=== PATIENT | male | born 1975 | race Caucasian/White ===

== ENCOUNTER 2020-10-01 14:28 | Emergency (ER) | payer OTHER, SELFPAY ==
--- NOTE | 2020-10-01 14:39 | ED.URI ---
HPI - URI/Sore Throat General Chief Complaint: Upper Respiratory Infection Stated Complaint: +covid,cough History of Present Illness HPI Narrative: This a 45-year-old male comes in complaining of a cough that is not improved patient was diagnosed with COVID-19 on September 24. Patient states that he should be past his symptoms by now is using his inhaler and taking Singulair and states that he is taken some Mucinex but the cough is progressively gotten worse. Related Data Home Medications Medication Instructions Recorded Confirmed albuterol sulfate INHALATION 10/01/20 irbesartan mg 10/01/20 montelukast mg 10/01/20 Allergies Allergy/AdvReac Type Severity Reaction Status Date / Time No Known Allergies Allergy Verified 10/01/20 14:45 Review of Systems Review of Systems: Narrative: CONSTITUTIONAL: Denies fever, chills, or sweats. EYES: Denies visual changes, redness, or discharge. ENT: Reports rhinorrhea, congestion, sore throat, or otalgia. CARDIOVASCULAR:Denies chest pain, palpitations, or edema. RESPIRATORY: Denies cough or dyspnea. GASTROINTESTINAL: Denies abdominal pain, nausea, vomiting, or diarrhea. GENITOURINARY: Denies dysuria or hematuria. SKIN:[Denies rash or itching. MUSCULOSKELETAL:Denies back pain, joint pain, or myalgia. NEUROLOGIC: Denies headache, numbness, or weakness. PSYCHIATRIC:Denies anxiety or depression PMFSH Comments At time as signature, I have reviewed and agree with nursing past medical, social, surgical and family history. Please see nursing chart for further information. There is no relevant family history pertinent to the presenting complaint. Exam Narrative: Exam Narrative: GENERAL:Well-appearing, well-nourished, and in no acute distress. HEAD:Normocephalic, atraumatic. EYES: PERRLA and EOMI. ENT: Nares clear, no rhinorrhea or epistaxis. Mucous membranes moist. NECK: Supple. CHEST: Clear to auscultation. No respiratory distress. Bronchial cough noted denies shortness of breath although uses inhaler 5-6 times a day patient states he uses his inhaler that many times when he is not sick HEART: Regular rate and rhythm. . Normal peripheral pulses. ABDOMEN: Soft, nontender, nondistended, normal active bowel sounds. EXTREMITIES: Normal range of motion. No edema. SKIN: Warm, dry, no rash. NEURO: No focal deficits. Alert and oriented x3. 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 Recommend antihistamine such as Benadryl at night time and Claritin/Zyrtec/Lisa during the day Also, recommend symptomatic treatment includes: rest, fluids, and increase humidity of the air at home. Recommend Acetaminophen or nonsteroidal anti-inflammatory agents (NSAIDs) as directed in the bottle to reduce fever and/pain/headache. Avoid smoking/second-hand smoke. Limit visits to areas with large crowds. Please schedule a follow-up visit with your personal physician for further evaluation and treatment within 3-5days. Including recheck and discussion of your blood pressure. If your symptoms persist, change or worsen significantly before you can contact your personal physician then please, without delay, go to the emergency department for further evaluation Incentive spirometer given Prescriptions: New methylprednisolone [Medrol (Bhanu)] 4 mg tablets,dose pack See Rx Instructions .ROUTE .COMPLEX Qty: 21 RF: 0 benzonatate [Tessalon Perles] 100 mg ca
[2020-10-01 14:47] VITALS: BP 140/71; PULSE 90; RESP 20; TEMP 37.5; O2SAT 99
== END 2020-10-01 15:01 | disposition home or self-care (01) ==
PROVIDERS: Emergency Provider Nurse Practitioner Family; PCP Internal Medicine
DX: U07.1 COVID-19 (principal); J06.9 Acute upper respiratory infection, unspecified
CPT/HCPCS: 99203; G0463

== ENCOUNTER 2022-02-22 16:56 | Emergency (ER) | payer OTHER, SELFPAY ==
[2022-02-22 17:15] VITALS: BP 127/73; PULSE 78; RESP 18; TEMP 37.2; O2SAT 100
[2022-02-22 17:25] VITALS: BP 127/73; PULSE 78; RESP 18; TEMP 37.2; O2SAT 100
--- NOTE | 2022-02-22 18:25 | ED.URI ---
HPI - URI/Sore Throat General Chief Complaint: Upper Respiratory Infection Stated Complaint: chest and head congestion Time Seen by Provider: 02/22/22 18:25 Source: patient and RN notes reviewed Mode of arrival: ambulatory Limitations: no limitations History of Present Illness HPI Narrative: 46 y/o male presented for c/o cough, sore throat, sinus congestion and drainage. Reports productive cough in the morning and chest tightness with cough. Onset 02/05 Has taken amox and steroids since onset. Endorses year-round sinus congestion but worse the last week. Taking Flonase and montelukast as directed. Denies sob, wheezing, fever. Hx asthma, using inhaler as needed with improvement in chest congestion. Not vaccinated for covid/flu. MD elicited complaint: cough Related Data Home Medications Medication Instructions Recorded Confirmed albuterol sulfate 90 mcg/actuation See Rx Instructions .Route 02/22/22 02/22/22 aerosol inhaler .COMPLEX PRN sob fluticasone propionate 250 1 inh inhalation DAILY 02/22/22 02/22/22 mcg/actuation blister powder for inhalation (Flovent Diskus) irbesartan 300 mg tablet 300 mg PO DAILY 02/22/22 02/22/22 montelukast 10 mg tablet 10 mg PO DAILY 02/22/22 02/22/22 Allergies Allergy/AdvReac Type Severity Reaction Status Date / Time No Known Allergies Allergy Verified 02/22/22 17:25 Review of Systems Review of Systems: CONSTITUTIONAL: Endorses malaise, chills, sweats, fever EYES: Denies visual changes, redness, or discharge ENT: Reports rhinorrhea, congestion, sinus pain, otalgia, sore throat CARDIOVASCULAR: Denies chest pain, palpitations, edema RESPIRATORY: Reports cough, post nasal drainage. Denies dyspnea GASTROINTESTINAL: Denies abdominal pain, nausea, vomiting, diarrhea SKIN: Denies rash or itching MUSCULOSKELETAL: Endorses myalgia NEUROLOGIC: Denies headache Exam Narrative: GENERAL: Ill-appearing, nontoxic EYES: PERRLA, conjunctivae clear ENT: Mucous membranes moist. nasal congestion. TMs pearly grigsby with dull light reflex bilaterally; no tragal tenderness. Oropharynx erythematous without lesions or exudate, no drooling, no hoarseness, no trismus, uvula midline. NECK: Supple. No lymphadenopathy CHEST: Clear to auscultation, breath sounds equal. No wheezing, rhonchi, rales, or stridor. No respiratory distress, speaks in full sentences. HEART: Regular rate and rhythm. No murmur heard. SKIN: Warm, dry, no rash. NEURO: Alert and oriented x3. PSYCH: Normal mood and affect Course Course Emergency Course: Patient is aware of diagnosis, understands and agrees to treatment plan. Anticipatory guidance given. Patient agrees to follow-up as directed and is aware of reasons to seek care at the emergency department. Portions of this record may have been created with voice recognition software Level of Care: Express Care Visit Vital Signs Vital signs: Vital Signs Temperature 99.0 F 02/22/22 17:15 Pulse Rate 78 02/22/22 17:15 Respiratory Rate 18 02/22/22 17:15 Blood Pressure 127/73 02/22/22 17:15 Pulse Oximetry 100 02/22/22 17:15 Oxygen Delivery Room Air 02/22/22 17:15 Temperature 99.0 F 02/22/22 17:25 Pulse Rate 78 02/22/22 17:25 Respiratory Rate 18 02/22/22 17:25 Blood Pressure 127/73 02/22/22 17:25 Pulse Oximetry 100 02/22/22 17:25 Oxygen Delivery Room Air 02/22/22 17:25 reviewed MDM - URI/Sore Throat MDM Narrative Medical decision making narrative: patient has completed a course of amoxicillin and steroid with only temporary improvement. Patient is compliant with antihistamines and steroids nasal spray. Will attempt a different antibiotic and advised close follow-up with PCP and possible ENT evaluation. Advised supportive measures and signs/symptoms to go to the ER. Pt is appropriate for outpt treatment and f/u. Differential Diagnosis Differential diagnosis: Likely upper respiratory infection, sinusitis and viral infection Dischar
== END 2022-02-22 18:40 | disposition home or self-care (01) ==
PROVIDERS: Emergency Provider Nurse Practitioner Family; PCP Internal Medicine
DX: J06.9 Acute upper respiratory infection, unspecified (principal); J45.909 Unspecified asthma, uncomplicated
CPT/HCPCS: 99213; G0463

== ENCOUNTER 2022-03-21 15:50 | Emergency (ER) | payer OTHER, SELFPAY ==
[2022-03-21 15:58] VITALS: BP 140/86; PULSE 93; RESP 18; TEMP 37.7; O2SAT 99
--- NOTE | 2022-03-21 17:11 | ED.URI ---
HPI - URI/Sore Throat General Chief Complaint: Upper Respiratory Infection Stated Complaint: Chest Congestion/Sinus Congestioin Time Seen by Provider: 03/21/22 17:11 Source: patient and RN notes reviewed Mode of arrival: ambulatory Limitations: no limitations History of Present Illness HPI Narrative: 46 y/o male presented for c/o cough, sinus congestion and drainage. Worse for the last 4 days. Patient reports URI symptoms since 02/05, and has taken amox doxy and steroids since onset. Was seen at clinic 02/22 for the same. Endorses year-round sinus congestion and allergies but worse the last week. Taking Flonase and montelukast as directed. Denies sob, wheezing, fever. Hx asthma, using inhaler as needed for chest congestion. Not vaccinated for covid/flu. MD elicited complaint: cough Related Data Home Medications Medication Instructions Recorded Confirmed albuterol sulfate 90 mcg/actuation See Rx Instructions .Route 02/22/22 03/21/22 aerosol inhaler .COMPLEX PRN sob fluticasone propionate 250 1 inh inhalation DAILY 02/22/22 03/21/22 mcg/actuation blister powder for inhalation (Flovent Diskus) irbesartan 300 mg tablet 300 mg PO DAILY 02/22/22 03/21/22 montelukast 10 mg tablet 10 mg PO DAILY 02/22/22 03/21/22 Allergies Allergy/AdvReac Type Severity Reaction Status Date / Time No Known Allergies Allergy Verified 03/21/22 16:23 Review of Systems Review of Systems: ROS per HPI Exam Narrative: GENERAL: well-appearing, nontoxic EYES: PERRLA, conjunctivae clear ENT: Mucous membranes moist. TMs pearly grigsby with dull light reflex bilaterally; no tragal tenderness. Oropharynx erythematous No tripod positioning, muffled voice, soft palate or pharyngeal wall bulging NECK: Supple. No lymphadenopathy CHEST: Clear to auscultation, breath sounds equal. HEART: Regular rate and rhythm. No murmur heard. SKIN: Warm, dry, no rash. Course Course Emergency Course: Patient is aware of diagnosis, understands and agrees to treatment plan. Anticipatory guidance given. Patient agrees to follow-up as directed and is aware of reasons to seek care at the emergency department. Portions of this record may have been created with voice recognition software Level of Care: Express Care Visit Vital Signs Vital signs: Vital Signs Temperature 99.9 F H 12/14/22 15:58 Pulse Rate 93 03/21/22 15:58 Respiratory Rate 18 03/21/22 15:58 Blood Pressure 140/86 03/21/22 15:58 Pulse Oximetry 99 03/21/22 15:58 Oxygen Delivery Room Air 03/21/22 15:58 Temperature 99.9 F H 03/21/22 15:58 Pulse Rate 93 03/21/22 15:58 Respiratory Rate 18 03/21/22 15:58 Blood Pressure 140/86 03/21/22 15:58 Pulse Oximetry 99 03/21/22 15:58 Oxygen Delivery Room Air 03/21/22 15:58 reviewed MDM - URI/Sore Throat MDM Narrative Medical decision making narrative: Advised supportive measures and signs/symptoms to go to the ER. Pt is appropriate for outpt treatment and f/u. Differential Diagnosis Differential diagnosis: Likely upper respiratory infection, sinusitis and viral infection Discharge Plan Discharge Clinical Impression: Upper respiratory infection Patient Disposition: Home, Self-Care Condition: Stable Instructions: Antibiotic Form, Rhinosinusitis (ED) Additional Instructions: Continue Flonase spray and Zyrtec (or Claritin/Lisa) consider Neti Pot, Afrin spray for 3 days max Tylenol 1000mg every 8 hours as needed for pain Symptomatic treatment includes: rest, fluids, and increase humidity of the air at home. Follow up with your primary care provider in 1 week. Go to the ER for worsening symptoms or concerns. Prescriptions: New levofloxacin 750 mg tablet 750 mg PO DAILY Qty: 7 0RF No Action montelukast 10 mg tablet 10 mg PO DAILY irbesartan 300 mg tablet 300 mg PO DAILY albuterol sulfate 90 mcg/actuation HFA aerosol inhaler See Rx Instructions .ROUTE .COMPLEX
== END 2022-03-21 17:36 | disposition home or self-care (01) ==
PROVIDERS: Emergency Provider Nurse Practitioner Family; PCP Internal Medicine
DX: J06.9 Acute upper respiratory infection, unspecified (principal)
CPT/HCPCS: 99213; G0463

== ENCOUNTER 2022-03-28 08:49 | Emergency (ER) | payer OTHER, SELFPAY ==
[2022-03-28 09:40] VITALS: BP 133/81; PULSE 75; RESP 18; TEMP 36.9; O2SAT 100
--- NOTE | 2022-03-28 09:53 | ED.URI ---
HPI - URI/Sore Throat General Chief Complaint: Upper Respiratory Infection Stated Complaint: Chest Congestion/Cough Time Seen by Provider: 03/28/22 09:54 Source: patient and RN notes reviewed Mode of arrival: ambulatory Limitations: no limitations History of Present Illness HPI Narrative: 46-year-old male presented for complaint of sinus pressure and congestion. Patient was seen at [facility] one week ago for the same plus a cough; he reports feeling better but is concerned the symptoms will worsen. Patient reports URI symptoms since? 02/05, and has taken amox doxy, levaquin and steroids since onset. Taking Flonase and montelukast as directed. Was seen at clinic 02/22 for the same. Endorses year-round sinus congestion and allergies . Denies sob, wheezing, fever. Hx asthma, using inhaler as needed for? chest congestion. Not vaccinated for covid/flu. Scheduled with PCP 04/11/22 MD elicited complaint: cough Related Data Home Medications Medication Instructions Recorded Confirmed albuterol sulfate 90 mcg/actuation See Rx Instructions .Route 02/22/22 03/28/22 aerosol inhaler .COMPLEX PRN sob fluticasone propionate 250 1 inh inhalation DAILY 02/22/22 03/28/22 mcg/actuation blister powder for inhalation (Flovent Diskus) irbesartan 300 mg tablet 300 mg PO DAILY 02/22/22 03/28/22 montelukast 10 mg tablet 10 mg PO DAILY 02/22/22 03/28/22 Allergies Allergy/AdvReac Type Severity Reaction Status Date / Time No Known Allergies Allergy Verified 03/28/22 09:46 Review of Systems Review of Systems: ROS per HPI Exam Narrative: GENERAL: well-appearing EYES: PERRLA, conjunctivae clear ENT: Mucous membranes moist. TM pearly grigsby with dull light reflex bilaterally; no tragal tenderness. NECK: Supple. No lymphadenopathy CHEST: Clear to auscultation, breath sounds equal. No wheezing, rhonchi, rales, or stridor. No respiratory distress, speaks in full sentences. HEART: Regular rate and rhythm. No murmur heard. SKIN: Warm, dry, no rash. NEURO: Alert and oriented x3. PSYCH: Normal mood and affect Course Course Emergency Course: Patient is aware of diagnosis, understands and agrees to treatment plan. Anticipatory guidance given. Patient agrees to follow-up as directed and is aware of reasons to seek care at the emergency department. Portions of this record may have been created with voice recognition software Level of Care: Express Care Visit Vital Signs Vital signs: Vital Signs Temperature 98.4 F 03/28/22 09:40 Pulse Rate 75 03/28/22 09:40 Respiratory Rate 18 03/28/22 09:40 Blood Pressure 133/81 03/28/22 09:40 Pulse Oximetry 100 03/28/22 09:40 Oxygen Delivery Room Air 03/28/22 09:40 Temperature 98.4 F 03/28/22 09:40 Pulse Rate 75 03/28/22 09:40 Respiratory Rate 18 03/28/22 09:40 Blood Pressure 133/81 03/28/22 09:40 Pulse Oximetry 100 03/28/22 09:40 Oxygen Delivery Room Air 03/28/22 09:40 reviewed MDM - URI/Sore Throat MDM Narrative Medical decision making narrative: Due to lack of resources, unable to test for influenza or perform chest x-ray at this time. Patient verbalizes understanding. he states he is not as concerned about the cough, states it is improving. Advised supportive measures and signs and symptoms to go to the ER. Patient is appropriate for outpatient treatment and follow-up. Differential Diagnosis Differential diagnosis: Likely upper respiratory infection, otitis media, sinusitis and viral infection Discharge Plan Discharge Clinical Impression: Upper respiratory infection Patient Disposition: Home, Self-Care Condition: Stable Instructions: Rhinosinusitis (ED) Additional Instructions: Recommend Afrin spray as directed for 3 days max, continue Zyrtec (or Claritin/Lisa) over the counter Cough syrup - Coricidin HBP as needed for cough; may cause drowsiness Tylenol 1000mg every 8 hours as needed for pain Symptomatic treatment includes
== END 2022-03-28 10:09 | disposition home or self-care (01) ==
PROVIDERS: Emergency Provider Nurse Practitioner Family; PCP Internal Medicine
DX: J06.9 Acute upper respiratory infection, unspecified (principal)
CPT/HCPCS: 99213; G0463

== ENCOUNTER 2024-03-27 11:46 | Emergency (ER) | payer OTHER, SELFPAY ==
--- NOTE | ~2024-03-27 | XR_ITS ---
Clinical Indication: Cough, fever PA and lateral views of the chest: Comparison: None Findings: There is left perihilar consolidation. Right lung clear. Cardiomediastinal silhouette is w ithin normal limits. Bones and soft tissues are unremarkable. Impression: Left perihilar consolidation is compatible with pneumonia. Follow-up to radiographic resolution is ad vised. Reviewed, dictated and finalized at location . R [employer] Impression: Left perihilar consolidation is compatible with pneumonia. Follow-up to radiogr aphic resolution is advised.
[2024-03-27 11:52] VITALS: BP 152/83; PULSE 97; RESP 16; TEMP 37.9; O2SAT 99
--- NOTE | 2024-03-27 12:17 | ED_ITS ---
HPI - URI/Sore Throat General Chief Complaint: Upper Respiratory Infection Stated Complaint: painful cough Time Seen by Provider: 03/27/24 12:17 Source: patient, RN notes reviewed and old records reviewed Mode of arrival: ambulatory Limitations: no limitations History of Present Illness HPI Narrative: 48-year-old male presents to the [facility] with complaints of a painful cough. Cough started on Saturday, 5 days ago. Patient was evaluated on Saturday at [facility], diagnosed with a URI, prescribed Augmentin, prednisone and albuterol. Patient states that he is taking medication. States that the cough has gotten worse. Patient has a history of asthma. Related Data Home Medications ?Medication ?Instructions ?Recorded ?Confirmed ?Last Taken ?Type albuterol sulfate 90 mcg/actuation See Rx Instructions .Route 02/22/22 03/27/24 Unknown History aerosol inhaler .COMPLEX PRN sob fluticasone propionate 250 1 inh inhalation DAILY 02/22/22 03/27/24 Unknown History mcg/actuation blister powder for inhalation (Flovent Diskus) montelukast 10 mg tablet 10 mg PO DAILY 02/22/22 03/28/22 Unknown History amoxicillin 875 mg-potassium tablet 03/27/24 Unknown History clavulanate 125 mg tablet prednisone 20 mg tablet mg 03/27/24 Unknown History Allergies Allergy/AdvReac Type Severity Reaction Status Date / Time No Known Allergies Allergy Verified 03/27/24 12:16 Review of Systems Review of Systems: All systems reviewed & are unremarkable except as noted in HPI and below Constitutional: Constitutional: Reports no additional constitutional comp laints ENT: Reports system reviewed and no additional complaints, except as documented Cardiovascular: Cardiovascular: Reports no additional cardiovascular complaints, Denies chest pain and Denies dyspnea Respiratory: Respiratory: Reports as per HPI, Denies chest congestion, Reports cough and Reports dyspnea Musculoskeletal: Musculoskeletal: Reports no additional musculoskeletal complaints Integumentary/Breasts: Skin/Breast: Reports system reviewed and no additional complaints, except as docu PMFSH Past Medical History Medical History History of asthma Comments At the time of my signature, I reviewed and agree with the nursing past medical, surgical, social, and family history. There is no relevant family history pertinent to the patient complaint. Exam Const: General: cooperative, healthy appearing, comfortable, no acute distress, well developed, alert and well nourished Nutritional Appearance: well nourished Orientation/consciousness: patient oriented x3 Limitations: no limitations HENMT: Head: normal to inspection Ears: hearing grossly normal bilaterally, external ears normal, TM's normal bilaterally, EAC's normal, mastoids normal and no periauricular adenopathy Face/Nose/Sinus: normal facial exam and face symmetric Face and sinus: normal facial exam and face symmetric Eyes: General: appearance normal, both eyes and all related structures Neck: Neck: normal visual inspection, full ROM, no lymphadenopathy and no meningeal signs Chest: Chest palpation & inspection: normal inspection of the chest Resp: Effort & Inspection: normal respiratory effort and able to speak in complete sentences Auscultation: no crackles, no rales, no rhonchi and wheezes expiratory wheezes (Left upper middle) Cardio: Rate: regular rate Skin: General skin exam: normal color and no rashes or lesions noted Neuro: General: patient oriented x3, gait normal, moves all extremities and no meningeal signs Cognition (Neuro): normal cognition Speech: normal speech Gait exam (Neuro): Normal gait present Extrem: General: normal to inspection, full ROM, capillary refill normal and normal gait Psych: Appearance: grossly normal and well kempt Mental Status: mental status grossly normal Speech and movement: Normal speech and movement present and Clear speech present Affect: normal affect Attitude: cooperative Course Course Level of Care: Express Care Visit Vital Signs Vital signs: Vital Signs Temperature 100.2 F H 03/27/24 11:52 Pulse Rate 97 03/27/24 11:52 Respiratory Rate 16 03/27/24 11:52 Blood Pressure 152/83 H 03/27/24 11:52 Pulse Oximetry 99 03/27/24 11:52 Oxygen Delivery Room Air 03/27/24 11:52 Temperature 100.2 F H 03/27/24 11:52 Pulse Rate 97 03/27/24 11:52 Respiratory Rate 16 03/27/24 11:52 Blood Pressure 152/83 H 03/27/24 11:52 Pulse Oximetry 99 03/27/24 11:52 Oxygen Delivery Room Air 03/27/24 11:52 Reviewed MDM - URI/Sore Throat MDM Narrative Medical decision making narrative: Patient sitting comfortably in exam room. Nontoxic, blood pressure is mildly elevated, temperature low-grade. Patient presents with worsening cough Patient's x-ray shows pneumonia, will add azithromycin, appropriate for outpatient treatment and follow-up Discharge instructions reviewed with patient, as well as provided in writing per nursing staff. The instructions also include specific and strict return/GO TO THE ER as well as f/u information. All questions have been answered, and the patient deny any further questions with discharge and discharge plan. Some parts of this dictation were generated by voice recognition software and may contain typographical and/or grammatical inaccuracies. Differential Diagnosis Differential diagnosis: Likely upper respiratory infection, sinusitis, viral infection and bronchitis Imaging Data Radiologist's impression: Clinical Indication: Cough, fever PA and lateral views of the chest: Comparison: None Findings: There is left perihilar consolidation. Right lung clear. Cardiomediastinal silhouette is within normal limits. Bones and soft tissues are unremarkable. Impression: Left perihilar consolidation is compatible with pneumonia. Follow-up to radiographic resolution is advised. Critical Care Time Critical Care Time Critical Care Time: No Discharge Plan Discharge Clinical Impression: Pneumonia Qualifiers: Pneumonia type: due to unspecified organism Laterality: left Patient Disposition: Home, Self-Care Condition: Stable Instructions: Antibiotic Form, Pneumonia (ED) Additional Instructions: Your x-ray shows pneumonia. It is recommended you follow-up with your primary care provider in approximately 2 weeks to have a repeat chest x-ray to make sure that it is resolving. Today your blood pressure was 152/83 it is recommended that you do follow-up with primary care provider within 2 weeks to have this rechecked Be sure to take 10 good deep breaths every hour while awake to help open up lungs Continue to take antibiotics as prescribed Use your inhaler every 4-6 hours while awake If your symptoms get worse please go directly to the emergency room Patient Language: Macedonian Prescriptions: New azithromycin 250 mg tablet See Rx Instructions PO .COMPLEX Qty: 6 0RF Rx Instructions: take 500 mg today (day 1), then 250 mg for 4 days (days 2-5) No Action montelukast 10 mg tablet 10 mg PO DAILY albuterol sulfate 90 mcg/actuation HFA aerosol inhaler See Rx Instructions .ROUTE .COMPLEX PRN (Reason: sob) Rx Instructions: as prescribed fluticasone propionate [Flovent Diskus] 250 mcg/actuation blister with device 1 inh inhalation DAILY benzonatate 200 mg capsule 200 mg PO TID PRN (Reason: cough) Qty: 20 0RF prednisone 50 mg tablet 50 mg PO DAILY Qty: 5 0RF prednisone 20 mg tablet amoxicillin-pot clavulanate 875-125 mg tablet Follow-up/Referrals: Brendan,Omar Guadalupe MD [Primary Care Provider] - 2 Weeks ([facility] follow up blood pressure check) Stand Alone Forms: Work/School Release IP Time of Disposition: 13:47
== END 2024-03-27 13:52 | disposition home or self-care (01) ==
PROVIDERS: Emergency Provider Nurse Practitioner; PCP Internal Medicine
DX: J18.9 Pneumonia, unspecified organism (principal); Z79.899 Other long term (current) drug therapy
CPT/HCPCS: 71046; 99213; G0463